=== PATIENT | female | born 1970 | race Caucasian/White ===

== ENCOUNTER 2016-06-20 13:35 | Observation (INO) | payer OTHER ==
[2016-06-20 13:36] VITALS: BMI 22.1
[2016-06-20 13:59] VITALS: RESP 17; TEMP 98.4; O2SAT 100
--- NOTE | 2016-06-20 14:11 | ED PDOC ---
Arrival/HPI - General Chief Complaint: Chest Pain Time Seen by Provider: 06/20/16 13:58 Historian: Patient - History of Present Illness Narrative History of Present Illness (Text): 06/20/16 13:58 A 46 year old female who denies having any past medical history presents to emergency department complaining of chest pain that started about an hour ago after some heavy lifting. She took 2 Aspirin prior to arrival. Patient notes bilateral arm heaviness. Patient says she has never had a stress test. She denies having any back pain, shortness of breath, pain or swelling in the legs, cough, fever, dizziness, nausea, headache, drug use or other complaints at the time. Patient is a smoker. PMD: Dr. Carson Time/Duration: 1 hour Symptom Onset: Sudden Symptom Course: Unchanged Quality: Tightness, Other (heaviness) Activities at Onset: Light Modifying Factors (Text): pain began after lifting a heavy object Context: Home Associated Symptoms (Text): heaviness to the bilateral arms Past Medical History - Provider Review Nursing Documentation Reviewed: Yes - Infectious Disease Hx of Infectious Diseases: None - Tetanus Immunization Tetanus Immunization: Unknown - Cardiac Hx Cardiac Disorders: Yes Hx Hypertension: Yes - Pulmonary Hx Respiratory Disorders: No - Neurological Hx Neurological Disorder: No - HEENT Hx HEENT Disorder: No - Renal Hx Renal Disorder: No - Endocrine/Metabolic Hx Endocrine Disorders: No - Hematological/Oncological Hx Blood Disorders: No - Integumentary Hx Dermatological Disorder: No - Musculoskeletal/Rheumatological Hx Musculoskeletal Disorders: No - Gastrointestinal Hx Gastrointestinal Disorders: No - Genitourinary/Gynecological Hx Genitourinary Disorders: Yes Hx Urinary Tract Infection: Yes (past) - Psychiatric Hx Depression: No Hx Emotional Abuse: No Hx Physical Abuse: No Hx Substance Use: No - Anesthesia Hx Anesthesia: Yes Hx Anesthesia Reactions: No Hx Malignant Hyperthermia: No - Suicidal Assessment Feels Threatened In Home Enviroment: No Family/Social History - Physician Review Nursing Documentation Reviewed: Yes Family/Social History: Unknown Family HX Smoking Status: Light Smoker < 10 Cigarettes Daily Hx Alcohol Use: No Hx Substance Use: No Hx Substance Use Treatment: No Allergies/Home Meds Allergies/Adverse Reactions: Allergies No Known Allergies Allergy (Verified 06/20/16 13:59) Review of Systems - Physician Review All systems were reviewed & negative as marked: Yes - Review of Systems Constitutional: absent: Fevers Respiratory: absent: SOB Cardiovascular: Chest Pain (radiates to her arms) Gastrointestinal: absent: Nausea, Vomiting Genitourinary Female: absent: Dysuria Musculoskeletal: absent: Back Pain Neurological: absent: Headache, Dizziness Physical Exam Vital Signs Reviewed: Yes Vital Signs Temp Pulse Resp BP Pulse Ox 06/20/16 17:20 69 17 120/75 100 06/20/16 13:59 98.4 F 72 17 117/102 H 100 Temperature: Afebrile Blood Pressure: Hypertensive Pulse: Regular Respiratory Rate: Normal Appearance: Positive for: Well-Appearing, Non-Toxic, Comfortable Pain Distress: None Mental Status: Positive for: Alert and Oriented X 3 - Systems Exam Head: Present: Atraumatic, Normocephalic Pupils: Present: PERRL Extroacular Muscles: Present: EOMI Conjunctiva: Present: Normal Mouth: Present: Moist Mucous Membranes Pharnyx: Present: Normal. No: ERYTHEMA, EXUDATE Neck: Present: Normal Range of Motion Respiratory/Chest: Present: Clear to Auscultation, Good Air Exchange. No: Respiratory Distress, Accessory Muscle Use Cardiovascular: Present: Regular Rate and Rhythm, Normal S1, S2. No: Murmurs Abdomen: Present: Normal Bowel Sounds. No: Tenderness, Distention, Peritoneal Signs Back: Present: Normal Inspection Upper Extremity: Present: Normal Inspection. No: Cyanosis, Edema Lower Extremity: Present: Normal Inspection. No: Edema Neurological: Present: GCS=15, CN II-XII Intact, Speech Normal, Motor Func Grossly Intact Skin: Present: Warm, Dry, Normal Color. No: Rashes Psychiatric: Present: Alert, Oriented x 3, Normal Insight, Normal Concentration Medical Decision Making ED Course and Treatment: 06/20/16 13:58 Impression: A 46 year old female with chest pain. Differential Diagnosis included but are not limited to: Musculoskeletal pain Vs. ACS Vs. anxiety Vs. PE Plan: -- EKG -- Chest X-ray -- Labs -- Urinalysis -- Toradol and Valium -- Reassess and disposition Prior Visits: Notes and results from previous visits were reviewed. The patient last presented to the emergency department on 10/31/15 for evaluation of mild left arm weakness. - EKG Interpretation EKG Interpretation (Text): 06/20/16 20:26 NSR @ 72; no ST/T changes; normal axis; normal intervals. - Medication Orders Current Medication Orders: Discontinued Medications Diazepam (Valium) 2.5 mg PO ONCE STA Stop: 06/20/16 14:13 Last Admin: 06/20/16 14:41 Dose: 2.5 MG Behavioural Document 06/20/16 14:41 SE (Rec: 06/20/16 14:41 SE [id number]) Maintenance Maintenance Dose No Nonmedicinal Nonmedicinal Interventions See nurse's notes Behavior Behavior for Medication: Anxiety Sodium Chloride (Sodium Chloride 0.9%) 1,000 mls @ 999 mls/hr IV .Q1H1M STA Stop: 06/20/16 17:59 Last Admin: 06/20/16 17:08 Dose: 999 MLS/HR eMAR Start Stop Document 06/20/16 17:08 SE (Rec: 06/20/16 17:08 SE [id number]) Intravenous Solution Start Date 06/20/16 Start Time 17:08 Ketorolac Tromethamine (Toradol) 30 mg IVP STAT STA Stop: 06/20/16 14:12 Last Admin: 06/20/16 14:41 Dose: 30 MG IVP Administration Document 06/20/16 14:41 SE (Rec: 06/20/16 14:41 SE [id number]) Charges for Administration # of IVP Administrations 1 ED OBSERVATION Discharge: Yes Date of observation admission: 06/20/16 Time of observation admission: 13:58 - Observation admission statement Patient is being placed in observation because:: chest pain and abdominal pain - Goals of Observation Goals of observation are:: obtain two sets of cardiac enzymes and pain control - Progress Note Progress Note: 06/20/16 15:02 D-dimer is elevated. Chest CT ordered. 06/20/16 15:05 Chest X-Ray: Creator : Lori Rod MD COMPARISON: 10/31/2015 FINDINGS: LUNGS: The lungs are well inflated and clear. There is no focal consolidation. PLEURA: No significant pleural effusion identified. No pneumothorax apparent. CARDIOVASCULAR: Normal. OSSEOUS STRUCTURES: No significant abnormalities. VISUALIZED UPPER ABDOMEN: Normal. OTHER FINDINGS: None. IMPRESSION: No active pulmonary disease. 06/20/16 16:[address]: Creator : Robert Lee MD COMPARISON: None available. FINDINGS: PULMONARY ARTERIES: Unremarkable. No pulmonary embolism. AORTA: No acute findings. No thoracic aortic aneurysm. LUNGS: Unremarkable. No nodule, mass or pulmonary consolidation. PLEURAL SPACES: Unremarkable. No effusion or pneuomothorax. HEART: Unremarkable. No cardiomegaly. No significant pericardial effusion. LYMPH NODES: No lymphadenopathy. BONES, CHEST WALL: Unremarkable. No fracture or destructive lesion OTHER FINDINGS: Unremarkable. IMPRESSION: Unremarkable CT pulmonary angiogram. No pulmonary embolus. 06/20/16 17:10 First set of Troponin negative. On reevaluation the patient states she feels much better and states her symptoms have completely resolved. Labs work shows a low sodium of 128. Case discussed with Dr. Carson, who is aware and states if patient can be clear for cardiac stand point to discharge the patient home. He states he will follow up with the patient himself for the sodium. Patient reports while awaiting result she called a safety teacher and make an appointment to see on tomorrow. 06/20/16 19:00 Second set of cardiac enzymes to be drawn. 06/20/16 20:25 Second set of cardiac enzymes negative - will d/c to f/u her pmd for the hyponatremia and safety teacher for chest pain. 06/20/16 20:26 She continues to feel much better. - Scribe Statement The provider has reviewed the documentation as recorded by the Scribe Aretha Miller, training with Eva Javier Provider Scribe Attestation: All medical record entries made by the Scribe were at my direction and personally dictated by me. I have reviewed the chart and agree that the record accurately reflects my personal performance of the history, physical exam, medical decision making, and the department course for this patient. I have also personally directed, reviewed, and agree with the discharge instructions and disposition. Disposition/Present on Arrival - Present on Arrival Any Indicators Present on Arrival: No History of DVT/PE: No History of Uncontrolled Diabetes: No Urinary Catheter: No History of Decub. Ulcer: No History Surgical Site Infection Following: None - Disposition Have Diagnosis and Disposition been Completed?: Yes Diagnosis: Atypical chest pain, Hyponatremia Disposition: HOME/ ROUTINE Disposition Time: 13:58 Patient Plan: Discharge Patient Problems: Current Active Problems Problem Status Diagnosed Atypical chest pain Acute Hyponatremia Acute Condition: GOOD
[2016-06-20 14:19] LABS: ADD MANUAL DIFF? NO
[2016-06-20 14:32] LABS: ALB/GLOB RATIO 1.2 (1.1-1.8); ALKALINE PHOSPHATASE 54 U/L (38-133); ALT/SGPT 12 U/L (7-56); AST/SGOT 23 U/L (15-39); BILIRUBIN,TOTAL 0.7 mg/dL (0.2-1.3); BLOOD UREA NITROGEN 8 mg/dL (7-21); CARBON DIOXIDE 24 mmol/L (21-33); CHLORIDE 96 mmol/L (98-107); GFR AFRICAN-AMERICAN > 60; GLUCOSE,RANDOM 84 mg/dL (70-110); LIPASE 94 U/L (23-300); POTASSIUM 3.6 mmol/L (3.6-5.0); SODIUM 128 mmol/L (132-148); TOTAL PROTEIN 6.9 g/dL (5.8-8.3)
[2016-06-20 14:35] LABS: BASO # 0.01 K/mm3 (0.0-2.0); BASO % 0.2 % (0.0-3.0); EOS # 0.1 (0.0-0.7); EOS % 1.3 % (1.5-5.0); GRAN # 3.56 (1.4-6.5); GRAN % 56.9 % (50.0-68.0); HEMATOCRIT 31.8 % (36.0-48.0); LYMPH # 2.1 (1.2-3.4); LYMPH % 32.8 % (22.0-35.0); MEAN CELL VOLUME 86.2 fL (80.0-105.0); MEAN CORPUSCULAR HGB CONC 33.6 g/dl (31.0-37.0); MEAN PLATELET VOLUME 9.4 fl (7.0-11.0); MONO # 0.6 (0.1-0.6); MONO % 8.8 % (1.0-6.0); PLATELET COUNT 252 10^3/uL (120.0-450.0); RED CELL DISTRIBUTION WIDTH 12.9 % (11.5-14.5); WHITE BLOOD COUNT 6.3 10^3/ul (4.5-11.0)
[2016-06-20 14:44] LABS: TROPONIN I < 0.01 ng/mL
[2016-06-20 14:47] LABS: INR 1.1 (0.93-1.08); PARTIAL THROMBOPLASTIN TIME 28.9 Seconds (23.7-30.8)
[2016-06-20 14:50] LABS: D DIMER 0.77 mg/L FEU (0-0.50)
[2016-06-20 14:54] LABS: PH,URINE 6.5 (4.7-8.0); URINE BILIRUBIN NEGATIVE (NEGATIVE); URINE BLOOD LARGE (NEGATIVE); URINE GLUCOSE (UA) NEGATIVE (NEGATIVE); URINE KETONE NEGATIVE (NEGATIVE); URINE LEUKOCYTE ESTERASE NEGATIVE Leu/uL (NEGATIVE); URINE PROTEIN NEGATIVE mg/dL (<30 mg/dL); URINE UROBILINOGEN 0.2 E.U./dL (<1 E.U./dL)
[2016-06-20 14:56] LABS: URINE APPEARANCE SL CLOUDY (CLEAR); URINE COLOR YELLOW (YELLOW)
[2016-06-20 14:59] LABS: URINE WBC NEGATIVE /hpf (0-6)
--- NOTE | 2016-06-20 15:04 | RAD ---
HISTORY: Chest pain COMPARISON: 10/31/2015 TECHNIQUE: Chest PA and lateral FINDINGS: LUNGS: The lungs are well inflated and clear. There is no focal consolidation. PLEURA: No significant pleural effusion identified. No pneumothorax apparent. CARDIOVASCULAR: Normal. OSSEOUS STRUCTURES: No significant abnormalities. VISUALIZED UPPER ABDOMEN: Normal. OTHER FINDINGS: None. IMPRESSION: No active pulmonary disease.
[2016-06-20] MEDS ORDERED: Iodixanol 320 MG/ML 100 ML BOTTLE IV ONE (15:22)
[2016-06-20 15:52] LABS: FREE T4 1.17 ng/dL (0.78-2.19)
--- NOTE | 2016-06-20 16:05 | CT ---
PROCEDURE: CT Chest with contrast (Pulmonary Angiogram) HISTORY: chest pain COMPARISON: None available. TECHNIQUE: Axial computed tomography images were obtained of the chest in the pulmonary arterial phase of enhancement. Coronal and sagittal reformatted images were created and reviewed. Intravenous contrast dose: 100 cc of Visipaque Radiation dose: Total exam DLP = 152 mGy-cm. FINDINGS: PULMONARY ARTERIES: Unremarkable. No pulmonary embolism. AORTA: No acute findings. No thoracic aortic aneurysm. LUNGS: Unremarkable. No nodule, mass or pulmonary consolidation. PLEURAL SPACES: Unremarkable. No effusion or pneuomothorax. HEART: Unremarkable. No cardiomegaly. No significant pericardial effusion. LYMPH NODES: No lymphadenopathy. BONES, CHEST WALL: Unremarkable. No fracture or destructive lesion OTHER FINDINGS: Unremarkable. IMPRESSION: Unremarkable CT pulmonary angiogram. No pulmonary embolus.
[2016-06-20 16:06] LABS: THYROID STIMULATING HORMONE 1.45 mIU/mL (0.46-4.68)
[2016-06-20] MEDS ORDERED: Sodium Chloride 0.9% 1,000 ML IV STA (16:59)
[2016-06-20 17:21] VITALS: BP 120/75; PULSE 69
[2016-06-20 20:20] LABS: TROPONIN I < 0.01 ng/mL
--- NOTE | 2016-06-21 09:08 | CARD ---
APPROVED REPORT EKG Measurement Heart [id number] <Conclusion> Normal sinus rhythm Normal ECG
== END 2016-06-20 20:34 | disposition home or self-care (01) ==
LOC: ED 13:35 → EROBSV 13:58
PROVIDERS: ADMIT Emergency Medicine; ATTEND Emergency Medicine
DX: R07.89 Other chest pain (principal); E87.1 Hypo-osmolality and hyponatremia; I10 Essential (primary) hypertension; Z72.0 Tobacco use
CPT/HCPCS: 71020; 71275; 80053; 80324; 80345; 80346; 80349; 80353; 80358; 80361; 81001; 82436; 82550; 83615; 83690; 83735; 83930; 83992; 84132; 84300; 84439; 84443; 84484; 85025; 85378; 85610; 85730; 93005; 96374; 99285; G0378; J1885; J7040; Q9967